=== PATIENT | female | born 1995 | race American Indian/Alaskan Native ===

== ENCOUNTER 2017-10-03 13:02 | Emergency (ER) | payer OTHER ==
[2017-10-03] MEDS ORDERED: PEPCID IV ONE (14:47)
[2017-10-03] MEDS ORDERED: ZOFRAN IV ONE (14:47)
--- NOTE | 2017-10-03 14:53 | Emergency Department Report ---
Blank Doc - Documentation Documentation: 22-year-old female presents to the hospital 12 weeks with her first with nausea, vomiting and by mouth intolerance and syncopal episode while shopping at [employer] today. Syncopal episode was preceded by lightheadedness and generalized weakness. Patient does not currently have any anti-emetics at home. She complains of lower sternum cp and epigasic pain described as a intermittent pressure without aggravating or alleviating factors. She denies shortness of breath, hematemesis, hematochezia, vaginal bleeding, dysuria, recent travel, leg/calf edema or pain, or history of PE status DVT. Patient has received care including ultrasound and her [facility] doctor is located in [place], [place]. Patient has epigastric tenderness on examination without sternal tenderness. She appears dehydrated orthotstaics, Labs, IV, D5 normal saline, medications ordered Midlevel to reevaluate
[2017-10-03] MEDS ORDERED: D5NS 1,000 ML IV SCH ×2 (15:00→17:00)
[2017-10-03 15:42] LABS: Alanine Aminotransferase 12 units/L (7-56); Albumin 4.1 g/dL (3.9-5); BUN/Creatinine Ratio 28; Blood Urea Nitrogen 11 mg/dL (7-17); Calcium 9.5 mg/dL (8.4-10.2); Hemolysis Index 3
[2017-10-03 15:59] LABS: Mean Corpuscular HGB Conc 29 % (30-34); Platelet Count 449 K/mm3 (140-440); Red Blood Count 4.55 M/mm3 (3.65-5.03); Red Cell Distribution Width 17.4 % (13.2-15.2)
[2017-10-03 16:01] LABS: Hematocrit 29.5 % (30.3-42.9); Hemoglobin 8.5 gm/dl (10.1-14.3); Mean Corpuscular Hemoglobin 19 pg (28-32); Mean Corpuscular Volume 65 fl (79-97)
[2017-10-03 16:50] LABS: Mucus,Urine 2+ /HPF
[2017-10-03 17:02] LABS: Bilirubin,Urine NEG (Negative); Blood,Urine NEG (Negative); Color,Urine Yellow (Yellow); Protein,Urine <15 mg/dL mg/dL (Negative); Urobilinogen,Urine < 2.0 mg/dL (<2.0)
--- NOTE | 2017-10-03 18:46 | Emergency Department Report ---
Vomiting/Diarrhea - HPI Chief Complaint: Weakness Stated Complaint: LIGHT HEADED,PASSED OUT Time Seen by Provider: 10/03/17 14:38 Duration: 2 Days Severity: severe Nausea/Vomiting Severity: Moderate Diarrhea Severity: None Pain Severity: None Symptoms: No Watery Diarrhea, No Bloody diarrhea, No Fever, No Able to Tolerate Fluids, No Recent Unusual Foods, No Recent Untreated Water, No Recent use of Antibiotics, No Family w/ Similar Symptoms, No Contacts w/ Similar Symptoms, No Rash, No Hematuria, No Recent URI Symptoms Other History: 22-year-old female presents with nausea and vomiting for 2 days. Patient is 12 weeks gestation with first . She is under [facility] care in [place]. Patient has recently moved to this area and began new [facility]. States she called [facility] today and could not get in. She is unable to tolerate fluids and solids. Syncopal episode was preceded by lightheadedness and generalized weakness. She is currently taking anti-emetics but ran out. She complains of lower sternum cp and epigasic pain described as a intermittent pressure without aggravating or alleviating factors. She denies shortness of breath, hematemesis, hematochezia, vaginal bleeding, dysuria, recent travel, leg/calf edema or pain, or history of PE status DVT. ED Review of Systems ROS: Stated complaint: LIGHT HEADED,PASSED OUT Other details as noted in HPI Constitutional: denies: chills, fever Respiratory: denies: cough, shortness of breath, wheezing Cardiovascular: chest pain (epigastric pain with vomiting). denies: palpitations, dyspnea on exertion, edema, syncope Gastrointestinal: nausea, vomiting. denies: abdominal pain, diarrhea, constipation, hematemesis, melena, hematochezia Neurological: denies: headache, weakness, paresthesias Psychiatric: denies: anxiety, depression ED Past Medical Hx - Past Medical History Previous Medical History?: No - Surgical History Past Surgical History?: No - Social History Smoking Status: Never Smoker Substance Use Type: None - Medications Home Medications: Home Medications Medication Instructions Recorded Confirmed Last Taken Type Ondansetron [Zofran Odt] 4 mg PO Q8H PRN #15 tab.rapdis 10/03/17 Unknown Rx Vomiting Diarrhea Exam - Exam General: Vital signs noted. No distress. Alert and acting appropriately. HEENT: Yes Moist Mucous Membranes, No Pharyngeal Erythema, No Pharyngeal Exudates, No Rhinorrhea, No Conjuctival Injection, No Frontal Tenderness, No Maxillary Tenderness Neck: No Adenopathy, No Rigidity Lungs: Yes Clear Lung Sounds, Yes Good Air Exchange, No Wheezes, No Stridor, No Cough, No Nasal Flaring, No Retractions, No Use of Accessory Muscles Heart exam: Regular: Yes, Murmur: No, Tachycardia: No Abdomen: Tenderness: No, Peritoneal Signs: No, Distention: No, Hyperactive Bowel sounds: No Skin exam: Rash: No, Edema: No, Normal turgor: Yes Neurologic: Alert and oriented, no deficits. Musculoskeletal: Unremarkable. ED Course Vital Signs 10/03/17 13:11 Temperature 98.2 F Pulse Rate 104 H Respiratory 16 Rate Blood Pressure 134/82 O2 Sat by Pulse 100 Oximetry ED Medical Decision Making - Lab Data Result diagrams: 10/03/17 15:12 10/03/17 15:12 Lab Results 10/03/17 10/03/17 10/03/17 Range/Units 15:12 15:12 15:12 WBC 4.8 (4.5-11.0) K/mm3 RBC 4.55 (3.65-5.03) M/mm3 Hgb 8.5 L (10.1-14.3) gm/dl Hct 29.5 L (30.3-42.9) % MCV 65 L (79-97) fl MCH 19 L (28-32) pg MCHC 29 L (30-34) % RDW 17.4 H (13.2-15.2) % Plt Count 449 H (140-440) K/mm3 Lymph % (Auto) [employer] [place] % (Auto) [employer] Eos % (Auto) [employer] Operator Baso % (Auto) [employer] Operator Lymph # [employer] Operator [place] # [employer] Eos # [employer] Operator Baso # [employer] Operator Seg Neutrophils % [employer] Seg Neutrophils # [employer] Sodium 134 L (137-145) mmol/L Potassium 4.2 (3.6-5.0) mmol/L Chloride 97.2 L (98-107) mmol/L Carbon Dioxide 21 L (22-30) mmol/L Anion Gap 20 mmol/L BUN 11 (7-17) mg/dL Creatinine 0.4 L (0.7-1.2) mg/dL Estimated GFR > 60 ml/min BUN/Creatinine Ratio 28 % Glucose 114 H (65-100) mg/dL POC Glucose (70-105) Calcium 9.5 (8.4-10.2) mg/dL Total Bilirubin 0.40 (0.1-1.2) mg/dL AST 20 (5-40) units/L ALT 12 (7-56) units/L Alkaline Phosphatase 34 L (35-129) units/L Total Protein 8.1 (6.3-8.2) g/dL Albumin 4.1 (3.9-5) g/dL Albumin/Globulin Ratio 1.0 % Lipase (13-60) units/L HCG, Quant 67212 H (0-4) mIU/mL Urine Color (Yellow) Urine Turbidity (Clear) Urine pH (5.0-7.0) Ur Specific [place] (1.003-1.030) Urine Protein (Negative) mg/dL Urine Glucose (UA) (Negative) mg/dL Urine Ketones (Negative) mg/dL Urine Blood (Negative) Urine Nitrite (Negative) Ur Reducing Substances Urine Bilirubin (Negative) Urine Ictotest Urine Urobilinogen (<2.0) mg/dL Ur Leukocyte Esterase (Negative) Urine WBC (Auto) (0.0-6.0) /HPF Urine RBC (Auto) (0.0-6.0) /HPF U Epithel Cells (Auto) (0-13.0) /HPF Urine Mucus /HPF 10/03/17 10/03/17 10/03/17 Range/Units 15:12 16:06 16:30 WBC (4.5-11.0) K/mm3 RBC (3.65-5.03) M/mm3 Hgb (10.1-14.3) gm/dl Hct (30.3-42.9) % MCV (79-97) fl MCH (28-32) pg MCHC (30-34) % RDW (13.2-15.2) % Plt Count (140-440) K/mm3 Lymph % (Auto) [place] % (Auto) Eos % (Auto) Baso % (Auto) Lymph # [place] # Eos # Baso # Seg Neutrophils % Seg Neutrophils # Sodium (137-145) mmol/L Potassium (3.6-5.0) mmol/L Chloride (98-107) mmol/L Carbon Dioxide (22-30) mmol/L Anion Gap mmol/L BUN (7-17) mg/dL Creatinine (0.7-1.2) mg/dL Estimated GFR ml/min BUN/Creatinine Ratio % Glucose (65-100) mg/dL POC Glucose 243 H (70-105) Calcium (8.4-10.2) mg/dL Total Bilirubin (0.1-1.2) mg/dL AST (5-40) units/L ALT (7-56) units/L Alkaline Phosphatase (35-129) units/L Total Protein (6.3-8.2) g/dL Albumin (3.9-5) g/dL Albumin/Globulin Ratio % Lipase 23 (13-60) units/L HCG, Quant (0-4) mIU/mL Urine Color Yellow (Yellow) Urine Turbidity Clear (Clear) Urine pH 5.0 (5.0-7.0) Ur Specific [place] 1.023 (1.003-1.030) Urine Protein <15 mg/dl (Negative) mg/dL Urine Glucose (UA) >=500 (Negative) mg/dL Urine Ketones 80 (Negative) mg/dL Urine Blood Neg (Negative) Urine Nitrite Neg (Negative) Ur Reducing Substances Not Reportable Urine Bilirubin Neg (Negative) Urine Ictotest Not Reportable Urine Urobilinogen < 2.0 (<2.0) mg/dL Ur Leukocyte Esterase Neg (Negative) Urine WBC (Auto) 2.0 (0.0-6.0) /HPF Urine RBC (Auto) 1.0 (0.0-6.0) /HPF U Epithel Cells (Auto) 1.0 (0-13.0) /HPF Urine Mucus 2+ /HPF - Medical Decision Making This is a 22 y.o. female that presents with nausea and vomiting for 2 days. Patient is stable and was examined by me and Dr. Turner. Vitals stable. Obtained CMP, CBC, lipase, hCG quant, & UA. Anemia, all other labs unremarkable. Patient tachycardic on arrival, EKG obtained in normal sinus. Patient denies vaginal discharge or abdominal pain, no ultrasounds ordered. Given zofran, pepcid, and D5NS in ER. Plan to start zofran for hyperemesis. Discussed plan with patient and agreed to plan. No further questions noted by the patient. Discharged home in stable condition. Follow up with [facility] in 2-3 days. Critical care attestation.: If time is entered above; I have spent that time in minutes in the direct care of this critically ill patient, excluding procedure time. ED Disposition Clinical Impression: Hyperemesis, Nausea and vomiting during Disposition: TO HOME OR SELFCARE Is pt being admited?: No Does the pt Need Aspirin: No Condition: Stable Instructions: Hyperemesis Gravidarum (ED) Additional Instructions: Take Zofran every 8 hours as needed for nausea. Slowly introduce solid foods to evaluate as tolerated. Follow up with [facility] in 2-3 days. Prescriptions: Ondansetron [Zofran Odt] 4 mg PO Q8H PRN #15 tab.rapdis PRN Reason: Nausea Referrals: [facility] [Provider Group] - 3-5 Days [facility] [Provider Group] - 3-5 Days Forms: Work/School Release Form(ED) Time of Disposition: 19:04 Print Language: LITHUANIAN
[2017-10-03 19:25] VITALS: BP 115/65
== END 2017-10-03 19:27 | disposition home or self-care (01) ==
LOC: ED 13:02
DX: O21.9 Vomiting of pregnancy, unspecified (principal); Z3A.12 12 weeks gestation of pregnancy
CPT/HCPCS: 36415; 80053; 81001; 82962; 83690; 84702; 85025; 93005; 93010; 96374; 96375; 99283; J2405; J7042